=== PATIENT | male | born 1965 | race Caucasian/White ===

== ENCOUNTER 2017-11-18 08:16 | Day surgery (SDC) | payer BC, SELFPAY ==
[2017-11-18] VITALS (7 sets, daily range): BP systolic 142–167; BP diastolic 71–90; PULSE 57–84; RESP 16–18; TEMP 36.4–36.8; O2SAT 92–99; BMI 30.7
--- NOTE | 2017-11-18 08:24 | EKG12_ITS ---
Test Reason : PRE OP Blood Pressure : / mmHG Vent. Rate : 056 BPM Atrial Rate : 056 BPM P-R Int : 158 ms QRS Dur : 106 ms QT Int : 406 ms P-R-T Axes : 065 079 047 degrees QTc Int : 391 ms Sinus bradycardia Otherwise normal ECG No previous ECGs available Reconfirmed by MORENO ESCALANTE, ROGER ([id number]), editor managing newspaper JOANN SHANNON ([id number]) on 11/22/2017 3:32:28 PM Referred By: Howard Lyles Confirmed By:ROGER MAYER MD
--- NOTE | 2017-11-18 09:34 | PCM.DC ---
You will use the following diet at home:: No restrictions Discharge Activity: Return to Normal Activity, May not drive while taking narcotic pain medications. Call your doctor if your incision/area has: Continuous Slow Oozing Call your doctor if you observe: Fever of 101 or Higher, Uncontrolled pain Allergies/Adverse Reactions: Allergies codeine Allergy (Verified 11/15/17 08:33) Rash Medications to take at Discharge RX: Omeprazole 40 mg PO DAILY 11/15/17 Primary Care Physician: Nallely Forbes,Out of [Primary Care Provider] -
--- NOTE | 2017-11-18 09:36 | PCM.OPRPT ---
Problem List (1) Deviated nasal septum Status: Chronic Report of Operation Date of Procedure: 11/18/17 Pre-Operative Diagnosis: Deviated nasal septum, facial pain Post-Operative Diagnosis: same Surgery/Procedure Performed:: Septoplasty Description of Surgical Findings:: Danielito is a 52-year-old male since evaluation of chronic left-sided nasal pain. This is persisted despite prior septoplasty. Examination showed marketed high posterior deviation of the left nasal septum corresponding with his locus of pain complaint and which was immediately relieved by topical sedation of this area with lidocaine. This is suggestive of Sluder syndrome and the patient was offered the above procedure in hopes of relief. He was eager to proceed. The risks, alternatives, potential benefits, and complications were discussed at length and any questions answered to the patient and/or caregiver's satisfaction. Witnessed informed consent was obtained in the office, and the patient and/or caregiver was agreeable to proceed. Procedure went as follows: The patient was identified in the preoperative holding and brought to the operating room, was placed under general anesthesia and intubated. When appropriate anesthesia was obtained, pledgets soaked in a 50-50 mixture of oxymetazoline and 4% topical lidocaine were placed to decongest the nasal mucosa. The nasal septum was then injected beginning on the left side with 1% lidocaine with 100,000 epinephrine for a total of 5 cc. The pledgets were then removed and the left nasal cavity examined. There was noted to be significant nasal septal deviation to the left high and posteriorly. Using a 15 blade scalpel, a hemitransfixion incision was then made in the left side and using the Frederick elevator a subperichondrial/periosteal flap was elevated. The septum was then transected at the bony cartilaginous junction and similar flap raised on the contralateral side. Using a Crystal forceps the septum was then sharply transected superiorly and the deviated portions removed with a Delbert forceps. Any inferior bony spur was then removed with a chisel allowing for midline placement of the nasal septum. The hemitransfixion incision was then closed with interrupted 4-0 chromic gut suture followed by a 4-0 plain quilting suture to reapproximate the mucosal flaps. Cloud splints coated with Bacitracin ointment were then applied to each nasal cavity and secured at the columella with a single 3-0 Prolene suture. An NG tube was then placed to decompress the stomach and the patient returned to anesthesia, revived and extubated having tolerated the procedure well. Type of Anesthesia:: General Anesthesiologist: Vargas Bright Specimen's removed: septal contents Drains: none Estimated Blood Loss (mL): 100 mL Fluids Replaced: 900 mL Grafts/Implants Used: Cloud splints - Complications none - Admit VTE Documentation VTE Present on Admission: No VTE Mechan Device Prophylaxis: SCD's VTE Pharm Prophylaxis ordered?: No
[2017-11-18] MEDS: Oxymetazoline 0.05% 1 SPRAY SPRAY.BTL 15 SPRAY (09:45)
[2017-11-18] MEDS: Lidocaine 4% 50 ML Bottle (09:45)
--- NOTE | 2017-11-18 09:50 | SEP_PTH ---
PATIENT: HORACIO GUTIERREZ [place] [facility] [place][id number] AGE/SX: 52/M ROOM: RE11/18/[address]: Dr. Howard Lyles MD : [id number] BED: DIS: 11/18/2017 SPEC #: [id number] RECD: 11/18/17 13:47 STATUS: LUISMarcus OLIVARES #: [id number] CHRISTI: 11/18/17 09:[address]: Howard Lyles DEPT: SURGICAL PATHOLOGY RECD BY: Yosef Mccormick ENTERED: 11/18/17 13:47 SP TYPE: SEPTUM OTHR DR: Out of Town Doctor Tissues: Nasal septum, NOS Procedures: Decalcification bone/plaque Surgery Specimen Level III HEADER OPERATION: Septoplasty PRE-OP DIAGNOSIS: Deviated nasal septum TISSUE SUBMITTED: Nasal septum contents MICROSCOPIC DIAGNOSIS Nasal septum contents: Fragments of bone and cartilage, clinically deviated nasal septum. SJ:amber 11/23/17 MICROSCOPIC DESCRIPTION Slides are reviewed. GROSS DESCRIPTION Received in fixative is one container labeled with the patient's name and designated nasal septum contents. The specimen consists of multiple pieces of cartilage and bone that in aggregate measure 3 x 2.5 x 0.3 cm. The entire specimen is submitted in one cassette after decalcification. / SJ:rg 11/18/17 TC:5 CPT: 16335, 02564
[2017-11-18] MEDS: Bacitracin 500 UNITS/GM PACKET (10:14)
== END 2017-11-18 13:00 | disposition home or self-care (01) ==
LOC: SDC 08:17 → AC 08:19
PROVIDERS: Visit Provider Otolaryngology
PROC: (CPT 30520; principal; 2017-11-18 09:35)
DX: J34.2 Deviated nasal septum (principal); R51 Headache; K21.9 Gastro-esophageal reflux disease without esophagitis; Z79.899 Other long term (current) drug therapy; Z87.891 Personal history of nicotine dependence
CPT/HCPCS: 30520; 88304; 88311; 93005; J7120; J2405